=== PATIENT | female | born 1975 ===

== ENCOUNTER → 2019-12-20 | Day surgery (SDC) | payer OTHER ==
[~2019-12-20] MED LIST: GLIMEPIRIDE4 MG; GLIMEPIRIDE4 MG PO; LOSARTAN-HCTZ1 EAC1 PO; METFORMIN HCL1000 M2 PO; ONGLYZA5 MG PO; SYNTHROID88 MCG PO; TOPROL XL50 M1 PO
== END | disposition home or self-care (01) ==
LOC: ADM 12-15 11:00 → CIR.AMB 05:18 → ADM 11:00 → CIR.AMB 12:15
DX: M24.832 Other specific joint derangements of left wrist, not elsewhere classified (principal)